=== PATIENT | male | born 1945 | race African-American/Black ===

== ENCOUNTER 2017-07-26 08:37 | Day surgery (SDC) | payer OTHER ==
[2017-07-25 13:54] VITALS: BMI 23.8
[2017-07-26] MEDS ORDERED: PROPOFOL 20 ML ONE ×2 (10:01)
[2017-07-26 10:49] VITALS: TEMP 97.9
[2017-07-26 11:04] VITALS: PULSE 65
[2017-07-26 15:44] VITALS: BP 116/63
--- NOTE | 2017-07-29 14:18 | PATH ---
Surgical Pathology Report Patient Name: BALBINA FINLEY [facility]. Rec. #: [id number] /Age/Gender: 1945 (Age: 71) / M Account: [id number] Location: U-ENDOSCOPY Taken: 07/26/2017 Received: 07/26/2017 Reported: 07/29/2017 Physicians: Victor Manuel Zhang M.D. Specimen(s) Received A: POLYP SIGMOID B: BX DESCENDING COLON POLYP Clinical History History of colon adenoma Severe diverticulosis, polyp Final Diagnosis A. COLON, SIGMOID, BIOPSY: HYPERPLASTIC POLYP. B. COLON, DESCENDING, BIOPSY: TUBULAR ADENOMA. Electronically Signed Dong Mitchell M.D. Gross Description A. Received in formalin, labeled "sigmoid polyp biopsy" are three fragments of ordonez tissue and measuring 0.2 cm. in greatest dimension. The specimen is submitted in toto in one cassette. B. Received in formalin, labeled "biopsy descending colon polyp" is a single fragment of ordonez tissue measuring 0.4 cm. in greatest dimension. The specimen is submitted in toto in one cassette. AF/07/26/2017 final/07/26/2017
== END 2017-07-26 11:00 | disposition home or self-care (01) ==
LOC: JASU-ENDO 08:37
PROVIDERS: ATTEND Internal Medicine Gastroenterology
PROC: 0DBN8ZX Excision of Sigmoid Colon, Via Natural or Artificial Opening Endoscopic, Diagnostic (ICD-10-PCS; 2017-07-26)
PROC: 0DBM8ZX Excision of Descending Colon, Via Natural or Artificial Opening Endoscopic, Diagnostic (ICD-10-PCS; principal; 2017-07-26 09:30)
DX: Z12.11 Encounter for screening for malignant neoplasm of colon (principal); K57.30 Diverticulosis of large intestine without perforation or abscess without bleeding; K63.5 Polyp of colon; D12.4 Benign neoplasm of descending colon; D12.5 Benign neoplasm of sigmoid colon; K64.8 Other hemorrhoids
CPT/HCPCS: 88305-TC